=== PATIENT | female | born 1950 | race Caucasian/White ===

== ENCOUNTER → 2017-03-10 | Outpatient (CLI) | payer OTHER ==
[~2017-03-10] MED LIST: CENTRUM SILVER PO; FISH OIL 1,0001 CA2 PO; FISH OIL 1,0001 EAC1 PO; LIPITOR20 MG PO; MULTI VITAMIN1 EACH PO; ZYRTEC10 M2 PO
--- NOTE | ~2017-03-10 | EKG ---
PATIENT: DONNIE BATISTA UNIT #: [id number] Ventricular Rate: 69 BPM Atrial Rate: 69 BPM P-R Interval: 130 ms QRS Duration: 80 ms Q-T Interval: 402 ms QTC Calculation(Bezet): 430 ms P [place]: 57 degrees Calculated R [place]: 60 degrees Calculated T [place]: 66 degrees Diagnosis Line: Sinus rhythm with Premature atrial complexes Diagnosis Line: Otherwise normal ECG Diagnosis Line: No previous ECGs available Diagnosis Line: Confirmed by DARRIUS STEIN MD ([id number]) on 03/10/2017 Diagnosis Line: 10:21:59 PM INTERPRETING MD: EMIL GARZA
[2017-03-10 09:45] LABS: HEMATOCRIT 39.2 % (35.0-45.0); HEMOGLOBIN 13.3 gm/dL (12.0-16.0); MEAN CELL VOLUME 95.2 FL (83-96); MEAN CORPUSCULAR HEMOGLOBIN 32.2 PG (28-34); MEAN CORPUSCULAR HGB CONC 33.9 g/dL (30-36); MEAN PLATELET VOLUME 9.2 FL (6.5-11.5); RED BLOOD COUNT 4.11 X10e (3.90-5.30); RED CELL DISTRIBUTION WIDTH 14.1 % (11.0-15.5); WHITE BLOOD COUNT 4.9 X10e3 (4.0-10.5)
[2017-03-10 10:41] LABS: BUN/CREATININE RATIO 12.5; CALCIUM SERUM 9.1 mg/dL (8.4-10.2); CREATININE SERUM 0.8 mg/dL (0.6-1.4); GLOM FILT RATE Estimated 75.8 mL/min (>60); POTASSIUM 4.2 mmol/L (3.5-5.1)
== END | disposition home or self-care (01) ==
LOC: CAMB 09:02
PROVIDERS: Specialist
DX: Z01.818 Encounter for other preprocedural examination (principal); K42.9 Umbilical hernia without obstruction or gangrene
CPT/HCPCS: 36415; 80048; 85027; 93005

== ENCOUNTER → 2017-03-17 | Day surgery (SDC) | payer OTHER ==
--- NOTE | ~2017-03-17 | OR ---
Unit #: [id number] #: [id number] Patient: DONNIE BATISTA [id number] [facility] [address] [facility] [address]. [place], [place] [address] [id number] O MR#: [id number] NAME: DONNIE BATISTA ROOM: Date of Procedure: 03/17/2017 Admission Date: 03/17/2017 Surgeon: Stiven Byers M.D. : 1950 Attending Physician: Stiven Byers M.D. Referring Physician: Stiven Byers M.D. Primary Care Physician: Yuri Echavarria M.D. OPERATIVE REPORT PREOPERATIVE DIAGNOSIS Incarcerated umbilical hernia. POSTOPERATIVE DIAGNOSIS Incarcerated umbilical hernia. PROCEDURE PERFORMED Open repair with 8-cm Ventralex mesh. ANESTHESIA General endotracheal anesthesia. VESSEL SCRAPPER HELPER Darryn Gamboa M.D. ESTIMATED BLOOD LOSS Less than 10 mL. INDICATIONS FOR PROCEDURE A 66-year-old female, who is quite active particularly with gardening presented with a painful umbilical hernia. On examination, she had an incarcerated umbilical hernia. DESCRIPTION OF PROCEDURE The patient was admitted to [facility], positively identified, and transported to the operating room, and after induction of general endotracheal anesthesia, she received IV antibiotics per SCIP protocol. Abdominal wall was prepped and draped in usual sterile fashion. A transverse incision below the umbilical skin was made. We dissected down and the hernia sac from the umbilical skin. The hernia sac was opened at the level of the fascia and the hernia sac and the incarcerated omentum were excised. Once we had removal of the incarcerated omentum, I palpated through the defect and there were no adhesions to the anterior abdominal wall and no other fascial defects. Her tissues at all levels however were very thin. She had very weak fascia as well as weak dermis. An 8-cm Ventralex patch was placed in the peritoneal cavity and secured circumferentially with 0 Ethibond interrupted suture. After the mesh was adequately fixated, I infiltrated 30 mL of 0.5% Marcaine with epinephrine into the fascia and soft tissue. An umbilicoplasty was performed and then the soft tissue was closed with 3-0 Vicryl suture and the skin was approximated with 4-0 Monocryl interrupted suture and Dermabond skin adhesives. Sponges and needle Unit #: [id number] #: [id number] Patient: DONNIE BATISTA counts were correct x3. The patient tolerated the procedure well and was transported to recovery in stable condition. Findings and postoperative instructions were discussed with her family. Dictated by... Kolton Mckeon/minesh TD: 03/18/2017 01:55 JOB #: [id number] OPERATIVE REPORT Page 1 of 1 X Stiven Byers MD PROCEDURE OPERATIVE NOTE
== END | disposition home or self-care (01) ==
LOC: CSUR 07:13
DX: K42.0 Umbilical hernia with obstruction, without gangrene (principal); J30.9 Allergic rhinitis, unspecified; E78.5 Hyperlipidemia, unspecified; E78.00 Pure hypercholesterolemia, unspecified; F17.290 Nicotine dependence, other tobacco product, uncomplicated; Z88.5 Allergy status to narcotic agent; Z88.8 Allergy status to other drugs, medicaments and biological substances; Z79.899 Other long term (current) drug therapy; Z98.51 Tubal ligation status; Z98.890 Other specified postprocedural states
CPT/HCPCS: J0330; J0690; J2250; J2405; J3010